=== PATIENT | female | born 1950 | race Caucasian/White ===

== ENCOUNTER 2019-04-24 05:50 | Day surgery (SDC) | payer OTHER | END 2019-04-24 10:15 | disposition home or self-care (01) | LOC: AMB-ENDOS 05:50 | DX: K57.32 Diverticulitis of large intestine without perforation or abscess without bleeding (principal) ==

== ENCOUNTER 2019-05-08 16:59 | Inpatient (IN) | payer OTHER ==
[~2019-05-08] VITALS: Ht 152.4 cm; Wt 87.1 kg
[2019-05-27] MEDS ORDERED: INDERAL LA80 MG PO (15:25)
[2019-05-27] MEDS ORDERED: SYNTHROID150 MCG PO (15:25)
[2019-05-27] MEDS ORDERED: HYDROCHLOROTH12.5 MG PO (15:26)
[2019-05-27] MEDS ORDERED: AVAPRO300 MG PO (15:26)
[2019-05-27] MEDS ORDERED: GLIPIZIDE5 MG PO (15:26)
[2019-05-27] MEDS ORDERED: DAFLONEX-XL 11300 MG PO (15:26)
[2019-05-27] MEDS ORDERED: GABAPENTIN600 MG PO (15:27)
[2019-05-27] MEDS ORDERED: ZYRTEC10 M3 PO (15:27)
[2019-05-27] MEDS ORDERED: ZOCOR40 MG PO (15:27)
[2019-05-27] MEDS ORDERED: XANAX XR0.5 MG PO (15:27)
[2019-06-07] MEDS ORDERED: KETOROLAC TROME10 MG PO (12:47)
[2019-06-07] MEDS ORDERED: POLY119PG PO (12:47)
[2019-06-07] MEDS ORDERED: HYOSCYAMINE0.125 M1 SL (12:48)
== END 2019-06-07 13:46 | disposition home or self-care (01) | DRG 330 ==
LOC: SURG 05-27 10:15 → O/R 06-04 06:00 → SURH 06-04 06:00 → SURG 06-04 10:15 → SURH 06-04 13:44
PROVIDERS: ADMIT Surgery
PROC: 0DJD8ZZ Inspection of Lower Intestinal Tract, Via Natural or Artificial Opening Endoscopic (ICD-10-PCS; 2019-06-04)
PROC: 0DTN4ZZ Resection of Sigmoid Colon, Percutaneous Endoscopic Approach (ICD-10-PCS; principal; 2019-06-04 12:30)
DX: K57.32 Diverticulitis of large intestine without perforation or abscess without bleeding (principal); N39.0 Urinary tract infection, site not specified; K58.1 Irritable bowel syndrome with constipation; B96.29 Other Escherichia coli [E. coli] as the cause of diseases classified elsewhere; K66.0 Peritoneal adhesions (postprocedural) (postinfection); I11.9 Hypertensive heart disease without heart failure; E11.9 Type 2 diabetes mellitus without complications; E66.8 Other obesity; E03.8 Other specified hypothyroidism; E78.00 Pure hypercholesterolemia, unspecified; K27.9 Peptic ulcer, site unspecified, unspecified as acute or chronic, without hemorrhage or perforation; J31.0 Chronic rhinitis; Z16.12 Extended spectrum beta lactamase (ESBL) resistance

== ENCOUNTER 2021-03-31 05:30 | Day surgery (SDC) | payer OTHER ==
[~2021-03-31 05:30] MED LIST: AVAPRO300 MG PO; DAFLONEX-XL 11300 MG PO; GABAPENTIN600 MG PO; GLIPIZIDE5 MG PO; HYDROCHLOROTH12.5 MG PO; HYOSCYAMINE0.125 M1 SL; INDERAL LA80 MG PO; KETOROLAC TROME10 MG PO; POLY119PG PO; SYNTHROID150 MCG PO; XANAX XR0.5 MG PO; ZOCOR40 MG PO; ZYRTEC10 M3 PO
== END 2021-03-31 10:18 | disposition home or self-care (01) ==
LOC: AMB-ENDOS 05:30
PROVIDERS: ATTEND Surgery
DX: K62.89 Other specified diseases of anus and rectum (principal); Z20.822 Contact with and (suspected) exposure to COVID-19